=== PATIENT | female | born 1955 ===

== ENCOUNTER 2022-03-06 12:39 | Emergency (ER) | payer SELFPAY ==
[2022-03-06 13:27] LABS: Hematocrit 37.3 % (30.3-42.9); Hemoglobin 12.2 gm/dl (10.1-14.3); Mean Corpuscular HGB Conc 33 % (30-34); Mean Corpuscular Volume 82 fl (79-97); Platelet Count 333 K/mm3 (140-440); Red Blood Count 4.56 M/mm3 (3.65-5.03); Red Cell Distribution Width 15.8 % (13.2-15.2)
[2022-03-06 13:47] LABS: Alanine Aminotransferase 33 units/L (7-56); Albumin 4.9 g/dL (3.9-5); BUN/Creatinine Ratio 20; Blood Urea Nitrogen 16 mg/dL (7-17); Calcium 10.6 mg/dL (8.4-10.2); Hemolysis Index 5
[2022-03-06 13:50] VITALS: BP 139/91
--- NOTE | 2022-03-06 15:30 | Emergency Department Report ---
ED General Adult HPI - General Chief complaint: Nausea/Vomiting/Diarrhea Stated complaint: DIARRHEA/ABD PAIN X 2 DAYS Time Seen by Provider: 03/06/22 15:25 Source: patient, family, RN notes reviewed Mode of arrival: Ambulatory Limitations: Language Barrier - History of Present Illness Initial comments: Ivorian historic interpreter: [id number] Primary CARE doctor: Dr. Kaur Current medications: Atorvastatin, metformin, Imodium, Bentyl, HCTZ The patient is a 67-year-old female who presents with a chronic complaint of feeling weak, and tired, with associated abdominal cramping, and intermittent diarrhea. She describes nonbloody stools at least once per day. She believes that the stools are normal color. She denies dysuria today. She denies additional pain. No colonoscopy that she is aware of. No recent antibiotics that she is aware of. No exacerbating or relieving factors. Describes generalized abdominal cramping. -: week(s), month(s) Location: abdomen Quality: other (Cramping) Consistency: intermittent - Related Data Allergies Allergy/AdvReac Type Severity Reaction Status Date / Time No Known Allergies Allergy Verified 03/06/22 13:50 ED Review of Systems ROS: Stated complaint: DIARRHEA/ABD PAIN X 2 DAYS Other details as noted in HPI Constitutional: malaise, weakness. denies: fever Respiratory: denies: cough Cardiovascular: denies: chest pain Gastrointestinal: abdominal pain, diarrhea. denies: nausea, vomiting Genitourinary: denies: dysuria Neurological: weakness ED Physical Exam - General Limitations: Language Barrier General appearance: alert, in no apparent distress - Head Head exam: Present: atraumatic, normocephalic - Eye Eye exam: Present: normal appearance, EOMI. Absent: nystagmus - ENT ENT exam: Present: normal exam, normal orophraynx, mucous membranes moist, normal external ear exam - Neck Neck exam: Present: normal inspection, full ROM. Absent: tenderness, meningismus - Respiratory Respiratory exam: Present: normal lung sounds bilaterally. Absent: respiratory distress, wheezes, rales, rhonchi, stridor, decreased breath sounds - Cardiovascular Cardiovascular Exam: Present: regular rate, normal rhythm, normal heart sounds. Absent: bradycardia, tachycardia, irregular rhythm, systolic murmur, diastolic murmur, rubs, gallop - GI/Abdominal GI/Abdominal exam: Present: soft. Absent: distended, tenderness, rebound, rigid, pulsatile mass - Extremities Exam Extremities exam: Present: normal inspection, full ROM, other (2+ pulses noted in the bilateral upper and lower extremities. There is no palpable cord. negative Homans sign. Muscular compartments are soft. The pelvis is stable.). Absent: pedal edema, calf tenderness - Back Exam Back exam: Present: normal inspection, full ROM. Absent: tenderness, CVA tenderness (R), CVA tenderness (L), paraspinal tenderness, vertebral tenderness - Neurological Exam Neurological exam: Present: alert, normal gait, reflexes normal, other (No facial droop. Tongue midline. Extraocular movements intact bilaterally. Facial sensation intact to light touch in V1, V2, V3 distribution bilaterally. 5 and a 5 strength in 4 extremities. Sensation intact to light touch in 4 extremities.). Absent: motor sensory deficit - Psychiatric Psychiatric exam: Present: normal affect, normal mood - Skin Skin exam: Present: warm, dry, intact, normal color. Absent: rash ED Course Vital Signs 03/06/22 13:45 Temperature 98.4 F Pulse Rate 99 H Blood Pressure 139/91 [Left] O2 Sat by Pulse 99 Oximetry - Pulse Oximetry Interpretation Digit-Finger Initial Pulse Oximetry Readin O2 Sat by Pulse Oximetry: 99 Actions Taken: none ED Medical Decision Making - Lab Data Result diagrams: 03/06/22 13:13 03/06/22 13:13 Vital Signs 03/06/22 13:45 Temperature 98.4 F Pulse Rate 99 H Blood Pressure 139/91 [Left] O2 Sat by Pulse 99 Oximetry Lab Results 03/06/22 03/06/22 Range/Units 13:13 13:13 WBC 7.4 (4.5-11.0) K/mm3 RBC 4.56 (3.65-5.03) M/mm3 Hgb 12.2 (10.1-14.3) gm/dl Hct 37.3 (30.3-42.9) % MCV 82 (79-97) fl MCH 27 L (28-32) pg MCHC 33 (30-34) % RDW 15.8 H (13.2-15.2) % Plt Count 333 (140-440) K/mm3 Sodium 137 (137-145) mmol/L Potassium 4.3 (3.6-5.0) mmol/L Chloride 97.5 L (98-107) mmol/L Carbon Dioxide 25 (22-30) mmol/L Anion Gap 19 mmol/L BUN 16 (7-17) mg/dL Creatinine 0.8 (0.6-1.2) mg/dL Estimated GFR > 60 ml/min BUN/Creatinine Ratio 20 % Glucose 169 H (65-100) mg/dL Calcium 10.6 H (8.4-10.2) mg/dL Total Bilirubin 0.30 (0.1-1.2) mg/dL AST 23 (5-40) units/L ALT 33 (7-56) units/L Alkaline Phosphatase 116 (35-129) units/L Total Protein 8.1 (6.3-8.2) g/dL Albumin 4.9 (3.9-5) g/dL Albumin/Globulin Ratio 1.5 % Lipase 38 (13-60) units/L - Medical Decision Making Differential diagnosis, include but not limited to: IBS, electrolyte derangement, dehydration, Assessment and plan: 67-year-old female, who is afebrile with reassuring vital signs, clinically sober, with a GCS of 15, no abdominal tenderness, rebound or guarding, nonactionable laboratory studies, denies irritative and obstructive urinary symptoms today and yesterday, who does not appear to have an emergent medical condition present. She has already been prescribed Imodium, and Bentyl. She may follow-up with outpatient primary care and GI. Advised that she does not appear to have an emergent medical condition present today. Return precautions reviewed. Entire history and physical, was conducted with Ivorian human resources assistant. Critical care attestation.: If time is entered above; I have spent that time in minutes in the direct care of this critically ill patient, excluding procedure time. ED Disposition Clinical Impression: History of diarrhea, Nonspecific abdominal pain Disposition: HOME / SELF CARE / HOMELESS Is pt being admited?: No Does the pt Need Aspirin: No Condition: Good Additional Instructions: Please continue current outpatient medications. Patient may take [id number] Tylenol, ibuprofen, Pepcid or Protonix as needed for physical pain. She may also take her prescribed Bentyl and Imodium as prescribed and directed. 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 Please return to the emergency room right away with new pain, worsened pain, migration of pain, projectile vomiting, change in mental status, confusion, inability tolerate liquid feeds, new, worsened or different symptoms not present on the initial emergency room evaluation Referrals: LIZETH KAUR MD [Referring] - 3-5 Days [facility] [Provider Group] - 3-5 Days
[2022-03-06] MEDS ORDERED: DICYCLOMINE 10 MG CAP PO ONE (15:45)
[2022-03-06] MEDS ORDERED: ACETAMINOPHEN 500 MG TAB PO ONE (15:45)
== END 2022-03-06 19:04 | disposition home or self-care (01) ==
LOC: ED 12:39
DX: R10.9 Unspecified abdominal pain (principal); R19.7 Diarrhea, unspecified
CPT/HCPCS: 36415; 80053; 83690; 85027; 99283